=== PATIENT | male | born 1965 | race Caucasian/White ===

== ENCOUNTER 2020-11-07 07:26 | Outpatient (CLI) | payer OTHER, SELFPAY ==
[2020-11-07 07:39] VITALS: BMI 45.1
--- NOTE | 2020-11-07 07:40 | ECG_ITS ---
[facility] Test Date: 2020-11-07 Pat Name: Tj Tolentino Department: Room: Gender: Male Supervisor [employer]: : 1965 Requested By: Torrey Potts Order Number: [id number] Harjinder MD: Mayito Avitia M.D. Interpretive Statements NAME OF STUDY: LEXISCAN SESTAMIBI STRESS TEST INDICATION: [sob, ] Procedure: At the baseline, the blood pressure was 165/105 mmHg with a heart rate of 85bpm. The electrocardiogram showed normal sinus rhythm, normal axis with normal ST and T's. The Lexiscan was infused over a period of 20 seconds. A total of 0.4 mg of Lexiscan was infused. The stress phase was continued for a total of 5 minutes. Heart rate was at the end of stress phase was 94 bpm and a blood pressure of 148/104 mmHg. The EKG at the peak infusion revealed since normal sinus rhythm with no significant ST-T wave changes. Sestamibi was injected 20 seconds after the Lexiscan infusion. Blood pressure at the end of recovery phase was 158/99 mmHg with a heart rate of 93 bpm. Conclusion: 1. Normal EKG response to Lexiscan infusion 2. No Lexiscan induced chest pain or cardiac arrhythmia. 3. Normal blood pressure and heart rate response. 4. Sestamibi/sestamibi perfusion scan pending; see separate report. Electronically Signed On 11-22-2020 16:59:50 CDT by Mayito Avitia M.D. [email or web address]
--- NOTE | 2020-11-07 07:40 | NMCV_ITS ---
NM gloria perf SPECT r/s* [id number] Tj Tolentino Age: 55 Gender: M : 1965 Exam Date: 11/07/2020 08:35 Ordering Phys: Torrey Potts MD ([email or web address]) Technologist: GLENYS Worley Exam Location: [facility] Indications: SHORTNESS OF BREATH STRESS TEST Please see separate stress test report in [facility] for full findings IMAGE PROTOCOL Rest/Stress 1 Lexiscan Day Radiopharmaceutical Dose (mCi) Administration Site Administered by Rest: Tc-99m 10.9 IV GLENYS Schuler Sestamibi Stress:Tc-99m 32.4 IV GLENYS Schuler Sestamibi Rest: 07-Nov-2020 60 Discovery 630 Stress: 07-Nov-2020 30 Discovery 630 0.4mg Lexiscan. Supine position only as patient was unable to lay prone. SPECT RESULTS Technical Quality: Good Raw Data Analysis: Normal Image Corrections: No attenuation or motion correction applied Summed Stress Score: 0 Summed Rest Score: 2 Summed Difference Score: 0 PERFUSION FINDINGS There is a small sized inferior wall perfusion defect in the inferior wall at rest that resolves during the stress phase likely representing attenuation artifact. No evidence of ischemia FUNCTIONAL RESULTS (calculated via Gated SPECT) Stress Image LV EF (%): 78 Stress EDV (mL):59 TID: 1.23 Stress ESV (mL):13 FUNCTIONAL FINDINGS: There is normal left ventricular systolic function. IMPRESSIONS 1. Normal myocardial perfusion imaging without evidence of ischemia 2. LV systolic function is normal Mayito Avitia MD (Electronically Signed) Final Date: 11 Nov 2020 10:10 S
[2020-11-07] MEDS: regadenoson 0.4 Mg/5 ml Syringe IVP (09:21)
[2020-11-07 09:29] VITALS: BP 158/99; PULSE 89
== END 2020-11-07 07:27 | disposition home or self-care (01) ==
LOC: CDL 07:28
PROVIDERS: PCP Nurse Practitioner Family; Visit Provider Internal Medicine Cardiovascular Disease
DX: R06.02 Shortness of breath (principal)
CPT/HCPCS: 78452; 93017; A9500; J2785

== ENCOUNTER 2020-12-12 12:33 | Outpatient (CLI) | payer OTHER, SELFPAY ==
--- NOTE | 2020-12-12 13:00 | CT_ITS ---
WS: [id number] CT ABDOMEN AND PELVIS WITH CONTRAST HISTORY: ABDOMINAL PAIN, HEMATURIA TECHNIQUE: Imaging performed of the abdomen and pelvis with IV contrast. Single phase imaging of the abdomen. Coronal and sagittal reformats are submitted. All CT scans at [facility] use at least one of these dose optimization techniques: automated exposure control; mA and/or kV adjustment per patient size (includes targeted exams where dose is matched to clinical indication); or iterativ e reconstruction. IV CONTRAST: Omnipaque 300; 95 mL IV. Oral contrast: Yes. DLP: 1159.71 mGycm COMPARISON: None available. Lower thorax: Lung bases are clear. Heart is normal size. Small hiatal hernia. Liver/biliary system: Normal size with no intrahepatic dilatation. Gallbladder: Normal. No gallstones or wall thickening. No pericholecystic fluid. Pancreas: Normal size pancreas and pancreatic duct. No adjacent inflammation. Spleen: Normal size spleen. No mass or infarct. Adrenal glands: Normal. Right kidney: 12 mm hypodensity medial RIGHT upper pole. No obstruction. Left kidney: Normal. Aorta: Normal. Lymphadenopathy: None. Free fluid: None. GI tract: Normal appendix. No obstruction. No wall thickening or colitis. Abdominal wall: Unremarkable abdominal wall. No hernia. Pelvis: No free fluid or adenopathy within the pelvis. Bones: Thecal sac of the lumbar spine appears small caliber probably congenital stenosis. CT/CT abdomen pelvis w con* [id number] IMPRESSION: 1. No acute abdominal or pelvic abnormalities are identified. Focal hypodensit y upper pole RIGHT kidney is too small to characterize. Likely a cyst. 2. Small hiatal hernia. 3. No appendicitis. 4. No renal calcifications or obstruction.
[2020-12-12] MEDS: iohexol 300 mg/mL 50 mL Btl PO (14:12)
[2020-12-12] MEDS: iohexol 300 mg/mL 100 mL Btl IV (14:34)
== END 2020-12-12 12:34 | disposition home or self-care (01) ==
LOC: RADWPI 12:36
PROVIDERS: PCP Nurse Practitioner Family; Visit Provider Nurse Practitioner Family
DX: R10.9 Unspecified abdominal pain (principal); R31.9 Hematuria, unspecified; K44.9 Diaphragmatic hernia without obstruction or gangrene
CPT/HCPCS: 74177; Q9967

== ENCOUNTER 2020-12-17 09:18 | Emergency (ER) | payer OTHER, SELFPAY ==
[2020-12-17 09:58] VITALS: BP 121/84; PULSE 99; RESP 15; TEMP 36.8; O2SAT 97; BMI 43.9
[2020-12-17 10:02] VITALS: O2SAT 97
--- NOTE | 2020-12-17 10:45 | ED_ITS ---
HPI - Skin/Abscess/Foreign Bdy General: Chief complaint: Skin/Abscess/Foreign Body Stated complaint: rash Time Seen by Provider: 12/17/20 10:06 History of Present Illness: HPI narrative: Patient is a 55-year-old male comes to the ED with pruritic rash on back. Patient says it started approximately 2 days ago. The rash is red and itchy and it started in the mid lower back region and has continued to spread on both right and left sides of back and around her right flank. Denies any nausea/vomiting, fever, chills, shortness of breath. Rash is not painful. Patient did say he had an outpatient CT done with contrast approximately 5 days ago. Denies any other environmental contacts. Denies any diet or med changes. Denies any changes of soaps, detergents or lotions. Associated symptoms: Deny chills, fever(s), nausea or vomiting Review of Systems Const: Denies: fever(s), chills or fatigue Eyes: Denies: change in vision or eye discomfort ENMT: Denies: throat pain, odynophagia, nasal discharge or nasal congestion Card: Denies: chest pain, palpitations, edema, swelling of feet/ankles, dyspnea on exertion or orthopnea Resp: Denies: dyspnea, productive cough or non-productive cough GI: Denies: abdominal pain, nausea, vomiting, diarrhea, constipation or hematochezia : Denies: flank pain, difficulty urinating, dysuria or hematuria Musc: Denies: neck pain, back pain or extremity swelling Skin/Breast: Reports: rash (Pruritic rash on back.) and pruritus; Denies: new lesions Neuro: Denies: headache(s), numbness in extremities or weakness in extremities PFSH ED PFSH: Medical History HTN (hypertension) Family History Father Cancer Heart problem Mother Lupus Lung disease Social History Smoking and tobacco status: never smoked Physical Exam Const: COMMON NORMALS: no acute distress, patient oriented x3 and alert GENERAL APPEARANCE: cooperative and comfortable HENMT: COMMON NORMALS: normocephalic HEAD & SCALP: normocephalic MOUTH: Normal oral and palatal mucosa present THROAT: posterior oropharynx normal and uvula midline Neck/C-Spine: COMMON NORMALS: supple GENERAL: Yes normal visual inspection Resp: COMMON NORMALS: normal respiratory effort, No retractions, No use of accessory muscles and clear to auscultation bilaterally AUSCULTATION: clear to auscultation bilaterally Cardio: COMMON NORMALS: regular rate, regular rhythm, S1 normal heart sound present, S2 normal heart sound present, No gallops present (Cardio), No clicks present (Cardio), No murmurs present (Cardio) and Peripheral pulses 2+ throughout RATE: regular rate RHYTHM: regular rhythm HEART SOUNDS: S1 normal heart sound present and S2 normal heart sound present PERIPHERAL PULSES: Peripheral pulses 2+ throughout GI: COMMON NORMALS: Normal to inspection, nondistended, normoactive bowel sounds present, Soft to palpation, non-tender and no masses PALPATION: Yes S oft to palpation : COMMON NORMALS: Yes no CVA tenderness BLADDER/KIDNEY EXAM: Yes no CVA tenderness Back/Pelvis: COMMON NORMALS: no CVA tenderness Extremity: COMMON NORMALS: normal to inspection Neuro: COMMON NORMALS: patient oriented x3 and moves all extremities SENSORIUM/ORIENTATION: Yes alert Skin: NARRATIVE SKIN EXAM: Patient has a erythemic raised maculopapular pruritic rash on bilateral lower back and both right and left flanks.. GENERAL SKIN EXAM: dry skin Course Vital Signs: Vital signs: Vital Signs Temperature 98.3 F 12/17/20 09:58 Pulse Rate 99 12/17/20 09:58 Respiratory Rate 15 12/17/20 09:58 Blood Pressure 121/84 12/17/20 09:58 Pulse Oximetry 97 12/17/20 10:02 MDM - Skin/Abscess/Foreign Bdy MDM Narrative: Medical decision making narrative: Patient is a 55-year-old male comes to the ED with a pruritic rash on back and in both right and left flanks. He denies any other symptoms with the rash. Patient unsure of the cause and denies any recent changes in any meds, diet, soaps, laundry detergent, lotions or environmental contacts. Exam shows a patient in no acute distress or pain. He has a erythemic, pruritic maculopapular rash on both right and left sides of lower back and both right and left flanks. Rash diagnosed with allergic dermatitis and he was given a dose of Decadron while here in the ED. He was then discharged home with a prescription for Medrol Dosepak and told to take [id number] Benadryl as well as needed for rash. Return to ED pre cautions given. Follow-up with PCP in 7 to 10 days for reevaluation. Patient understood agree with plan. Discharge Plan Discharge Patient Disposition: Home Clinical Impression: Allergic dermatitis Condition: Stable Prescriptions: New Medrol (Yuan) 4 mg tablets,dose pack See Rx Instructions .ROUTE .COMPLEX Qty: 21 RF: 0 No Action allopurinol 100 mg tablet 100 mg PO QDAY RF: 0 amlodipine 10 mg tablet 10 mg PO QDAY RF: 0 benazepril 40 mg tablet 40 mg PO QDAY RF: 0 colchicine 0.6 mg tablet 0.6 mg PO QDAY RF: 0 albuterol sulfate [ProAir HFA] 90 mcg/actuation HFA aerosol inhaler 2 puff INHALATION Q6H PRNRF: 0 aspirin [Adult Low Dose Aspirin] 81 mg tablet,delayed release (DR/EC) 81 mg PO DAILY RF: 0 isosorbide mononitrate 30 mg tablet extended release 24 hr 15 mg PO BID Qty: 90 RF: 3 nitroglycerin [Nitrostat] 0.4 mg tablet, sublingual 0.4 mg sublingual Q5M PRN (Reason: chest pain) Qty: 25 RF: 3 Discharge Orders: Discharge ED (Routine); Ordered 12/17/20 Ordered By: Tigre Francis Referrals: Kacy Choe APN [Primary Care Provider] - Discharge Diet: Regular Discharge Activity: Resume usual activity Patient Instructions: Urticaria (ED) Activity Restrictions/Additional Instructions: Follow-up with medical provider as directed in 7 to 10 days for reevaluation. Take medications as prescribed. Start taking steroid prescription tomorrow. You can also take 25 mg of Benadryl at night to help with rash as well. Return to the ER or your medical provider if condition worsens. Please read and understand discharge instructions. Thank you for choosing [facility] for your healthcare needs today. Please realize this is an emergency room and that we are providing you with a medical screening exam and this may not be complete and all inclusive of all the testing and or work up that you may need to determine your ailment or severity of your illness. It is very important that you follow up as instructed or that you return to the Emergency Department should you have concerns or if your condition changes or worsens in any way. Coding Level of Care Code ED Chemical Production Technician for Carlos Liu Exam Comprehensive
[2020-12-17] MEDS: dexamethasone 10 mg/mL INJ IM (11:14)
== END 2020-12-17 11:21 | disposition home or self-care (01) ==
PROVIDERS: Emergency Provider Physician Assistant; PCP Nurse Practitioner Family
DX: L23.9 Allergic contact dermatitis, unspecified cause (principal); Z79.82 Long term (current) use of aspirin; I10 Essential (primary) hypertension
CPT/HCPCS: 96372; 99283; J1100